=== PATIENT | male | born 1965 | race Caucasian/White ===

== ENCOUNTER 2020-02-08 12:00 | Emergency (ER) | payer OTHER ==
[2020-02-08 12:12] VITALS: BP 149/78
== END 2020-02-08 13:11 | disposition home or self-care (01) | DRG 563 ==
LOC: ED 12:00
DX: S63.91XA Sprain of unspecified part of right wrist and hand, initial encounter (principal); W22.09XA Striking against other stationary object, initial encounter; Y93.89 Activity, other specified; Y92.89 Other specified places as the place of occurrence of the external cause; Y99.0 Civilian activity done for income or pay

== ENCOUNTER 2021-03-31 09:42 | Emergency (ER) | payer OTHER ==
[~2021-03-31] VITALS: Ht 182.9 cm; Wt 82.0 kg
[2021-03-31 10:55] VITALS: BP 144/89
== END 2021-03-31 10:55 | disposition home or self-care (01) | DRG 556 ==
LOC: ED 09:42
DX: M25.562 Pain in left knee (principal); W17.2XXA Fall into hole, initial encounter; Y93.89 Activity, other specified; Y92.89 Other specified places as the place of occurrence of the external cause; Y99.0 Civilian activity done for income or pay